=== PATIENT | female | born 1985 | race African-American/Black ===

== ENCOUNTER 2024-06-30 01:00 | Inpatient (IN) | payer OTHER ==
[~2024-06-30] VITALS: Ht 162.6 cm; Wt 61.7 kg
[2024-06-30] VITALS (11 sets, daily range): BP systolic 107–144; BP diastolic 66–82; PULSE 43–81; TEMP 97.7–98.2
[2024-06-30] MEDS ORDERED: ZYRTEC 10MG10 MG PO (02:21)
[2024-06-30] MEDS ORDERED: FLONASE NASAL S16 GM NS (02:21)
[2024-06-30] MEDS ORDERED: PRILOSEC 20MG20 MG PO (02:22)
[2024-06-30] MEDS ORDERED: IRON TABLETS325 MG PO (02:22)
[2024-06-30] MEDS ORDERED: PROAIR HFA0.09 MG/AC IH (02:23)
[2024-06-30] MEDS ORDERED: ZOFRAN ODT4 MG PO (02:25)
[2024-06-30] MEDS ORDERED: REFRESH PLUS 00.4 M1 OP (02:27)
--- NOTE | 2024-06-30 03:09 | NUR ---
patient arrived from [facility] via EMS around 0200, alert and oriented x4. denies chest pain adn shortness of breath. reports burning pain rate 5/10 in RUQ and right upper back/shoulder. no remarkable skin findings. ambulates with steady gait. LAZARO Omalley notified of pt arrival, in with pt at this time. pt has no further needs, questions, or concerns. call light within reach. will continue to monitor.
[2024-06-30] MEDS ORDERED: LR 1,000 ML IV SCH (03:15)
[2024-06-30] MEDS ORDERED: Ondansetron 4 MG/2 ML VIAL IV PRN ×2 (03:15→15:00)
[2024-06-30] MEDS ORDERED: Ketorolac 15 MG/ML VIAL IV PRN (04:45)
--- NOTE | 2024-06-30 06:50 | NUR ---
awake resting in bed, bedside shift report received from JUAN Cochran
[2024-06-30 07:45] LABS: ALBUMIN 3.4 g/dL (3.5-5.0); BILIRUBIN,TOTAL 0.4 mg/dL (0.2-1.2); CALCIUM 8.8 mg/dL (8.4-10.2); CREATININE, serum 0.78 mg/dL (0.57-1.11); POTASSIUM 4.1 mEq/L (3.5-4.5); TOTAL PROTEIN 6.5 g/dl (6.2-8.1)
[2024-06-30 08:05] LABS: BILIRUBIN,DIRECT 0.2 mg/dL (0.0-0.5)
--- NOTE | 2024-06-30 08:15 | NUR ---
resting in bed talking on phone, protonix given, then full assessment completed, see interventions for further info, spoke with Dr Bill and verified she was aware of consult, patient denies any needs
[2024-06-30] MEDS ORDERED: Pantoprazole 40 MG in NS 10 ML IV SCH (09:00)
--- NOTE | 2024-06-30 09:19 | NUR ---
SW met with patient to complete initial assessment for discharge planning. Patient verified that she lives in [place], is active at [facility]. She uses [facility] for medical care and uses [facility] pharmacy in [place]. Patient lists her friend Keely Looney ([phone]) and her son Artie ([phone]) as emergency contacts. Patient does not have DPOA assigned. Patient is active and independent and utilizes no DME. Patient's only concern is getting transportation back to [facility] where her car was left. Patient states her commander or friend can drive her. Discharge plan: Home
--- NOTE | 2024-06-30 10:30 | NUR ---
Dr Bill was in to see patient, will plan MRCP later this morning
--- NOTE | 2024-06-30 11:05 | NUR ---
c/o pain 05/26, medicated with toradol 15mg slow IV
--- NOTE | 2024-06-30 12:00 | NUR ---
to radiology per WC for MRCP
--- NOTE | 2024-06-30 12:51 | NUR ---
returned per WC from radiology
--- NOTE | 2024-06-30 14:30 | NUR ---
having soem clear liquids and c/os nausea, medicated with zofran 4mg slow IV, informed her she needs to go slow with the liquids since having clear liquids
[2024-06-30] MEDS ORDERED: Polyethylene Glycol 3350 119 GM BOTTLE PO SCH (17:00)
--- NOTE | 2024-06-30 21:10 | NUR ---
SHIFT ASSESSMENT COMPLETED AT THIS TIME. PT REPORTS 7/10 PAIN WITH NAUSEA AND VOMITING BUT DENIES PAIN MEDICATION AT THIS TIME. PRN ZOFRAN ADMINISTERED. PT A&OX4. PT REPORTS A LOOSE BOWEL IN BED. PT CONTINUES ON A CLEAR LIQUID DIET WITH BOWEL PREP. PT HAS NO FURTHER QUESTIONS OR CONCERNS AT THIS TIME. CALL LIGHT WITHIN REACH.
[2024-07-01] VITALS (10 sets, daily range): BP systolic 113–128; BP diastolic 58–95; PULSE 45–72; TEMP 97.5–98.3
--- NOTE | 2024-07-01 00:46 | NUR ---
IV in LAC leaking, dressing changed, line patent, site CDI. all needs met at this time
[2024-07-01] MEDS ORDERED: NS 1,000 ML IV SCH (05:00)
--- NOTE | 2024-07-01 08:00 | NUR ---
Patient laying in bed sleeping, easily awakened with verbal command. A&Ox4. VSS. IV CDI, fluids infusing. Denies pain and discomfort. NPO for a procedure. Call light within reach
[2024-07-01] MEDS ORDERED: Glycopyrrolate 0.2 MG/ML 1 ML VIAL ONE (11:12)
[2024-07-01] MEDS ORDERED: Lidocaine PF 2% (20 MG/ML) 5 ML VIAL ONE (11:12)
--- NOTE | 2024-07-01 12:15 | NUR ---
Patient to room 327 from endo. A&Ox3, drowsy. Patient assisted back to bed, warm blanket applied. Post op VS monitored. Nurse reoriented the patient to location, room and call light. Call light within reach
--- NOTE | 2024-07-01 13:45 | NUR ---
Discharge paperwork reviewed with the patient and friend. Patient verbalized an understanding to follow doctors orders. Patient eating lunch, will get dressed and will call when ready to leave. Call light within reach
--- NOTE | 2024-07-01 14:18 | NUR ---
D: Breakdown Person stopped by room on rounds. A: Pt was preparing to be released. No needs right now. P: Breakdown Person informed pt that if she needed anything from the treater area before she left to let her nurse know. Breakdown Person will follow up as needed.
--- NOTE | 2024-07-01 14:20 | NUR ---
Patient taken by wheelchair to awaiting vehicle with personal belongings.
== END 2024-07-01 14:20 | disposition home or self-care (01) | DRG 446 ==
LOC: SURG 01:00
PROVIDERS: Internal Medicine Gastroenterology; ADMIT Internal Medicine
PROC: 0DB18ZX Excision of Upper Esophagus, Via Natural or Artificial Opening Endoscopic, Diagnostic (ICD-10-PCS; 2024-07-01)
PROC: 0DBF8ZX Excision of Right Large Intestine, Via Natural or Artificial Opening Endoscopic, Diagnostic (ICD-10-PCS; 2024-07-01)
PROC: 0DB98ZX Excision of Duodenum, Via Natural or Artificial Opening Endoscopic, Diagnostic (ICD-10-PCS; principal; 2024-07-01 11:30)
PROC: 0DB68ZX Excision of Stomach, Via Natural or Artificial Opening Endoscopic, Diagnostic (ICD-10-PCS; 2024-07-01 11:30)
DX: K83.1 Obstruction of bile duct (principal); K21.9 Gastro-esophageal reflux disease without esophagitis; J30.2 Other seasonal allergic rhinitis; K83.8 Other specified diseases of biliary tract; Z90.49 Acquired absence of other specified parts of digestive tract; Z88.1 Allergy status to other antibiotic agents; Z91.014 Allergy to mammalian meats; Z91.011 Allergy to milk products; Z79.899 Other long term (current) drug therapy
CPT/HCPCS: G0378; G0379; J1885; J2405; J2470; J2704; J7120